=== PATIENT | male | born 1960 | race Caucasian/White ===

== ENCOUNTER 2019-11-13 18:44 | Emergency (ER) | payer OTHER ==
[~2019-11-13] VITALS: Ht 167.6 cm; Wt 77.1 kg
[2019-11-13 19:00] VITALS: BP 158/71
--- NOTE | 2019-11-13 19:03 | NUR ---
TO LOBBY A/W BED AMBULATORY
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
--- NOTE | 2019-11-13 19:39 | NUR ---
Pt ambulated to bed 5. Addendum: 11/13/19 at 1940 by [facility] Pt wheel chair assisted to bed 5.
[2019-11-13] MEDS ORDERED: LIDOCAINE MPF 1% 10 MG/ML VIAL INJ ONE ×2 (19:40→20:30)
[2019-11-13] MEDS ORDERED: cefTRIAXone 1,000 MG in LIDOCAINE MPF 1% 2.1 ML IM ONE (19:40)
[2019-11-13] MEDS ORDERED: cefTRIAXone 1,000 MG VIAL ONE (19:46)
[2019-11-13] MEDS ORDERED: LIDOCAINE MPF 1% 5 ML ONE (19:47)
--- NOTE | 2019-11-13 20:19 | NUR ---
PA AT BEDSIDE.
--- NOTE | 2019-11-13 20:20 | NUR ---
PULLED LIDOCAINE 1% FOR BEDSIDE I & D PROCEDURE. PA AT FOR BEDSIDE.
[2019-11-13 20:47] VITALS: BP 131/69
--- NOTE | 2019-11-13 20:47 | NUR ---
Patient discharged with v/s stable. Written and verbal after care instructions given and explained. Patient alert, oriented and verbalized understanding of instructions. Ambulatory with steady gait. All questions addressed prior to discharge. ID band removed. Patient advised to follow up with PMD. Rx of KEFLEX; IBUPROFEN given. Patient educated on indication of medication including possible reaction and side effects. Opportunity to ask questions provided and answered.
== END 2019-11-13 20:47 | disposition home or self-care (01) ==
LOC: MED 18:44
DX: L02.611 Cutaneous abscess of right foot (principal)
CPT/HCPCS: 10060; 96372; 99283; J0696; J2001

== ENCOUNTER 2019-11-16 07:32 | Emergency (ER) | payer OTHER ==
[~2019-11-16] VITALS: Ht 167.6 cm; Wt 74.8 kg
[2019-11-16 07:38] VITALS: BP 138/90
--- NOTE | 2019-11-16 07:38 | NUR ---
PT AMBULATED TO BED 06.
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
--- NOTE | 2019-11-16 08:13 | NUR ---
DR DIAZ AT BEDSIDE
--- NOTE | 2019-11-16 08:20 | NUR ---
PER SIVA CRAFT TO GIVE PT POST OP SHOE
[2019-11-16 08:22] VITALS: BP 138/90
--- NOTE | 2019-11-16 08:23 | NUR ---
Patient discharged with v/s stable. Written and verbal after care instructions given and explained. Patient alert, oriented and verbalized understanding of instructions. Ambulatory with steady gait. All questions addressed prior to discharge. ID band removed. Patient advised to follow up with PMD. Rx of BACTRIM given.PT WAS GIVEN AN ORTHO SHOE TO AVOID RUBBING ON WOUND SITE. Patient educated on indication of medication including possible reaction and side effects. Opportunity to ask questions provided and answered.
== END 2019-11-16 08:23 | disposition home or self-care (01) ==
LOC: MED 07:32
DX: L03.115 Cellulitis of right lower limb (principal); R03.0 Elevated blood-pressure reading, without diagnosis of hypertension
CPT/HCPCS: 99283

== ENCOUNTER 2021-07-09 12:19 | Emergency (ER) | payer OTHER ==
[~2021-07-09] VITALS: Ht 167.6 cm; Wt 72.6 kg
[2021-07-09 13:24] VITALS: BP 127/73
--- NOTE | 2021-07-09 13:27 | NUR ---
PT TO WAIT IN LOBBY
--- NOTE | 2021-07-09 14:30 | NUR ---
NO NURSING INTERVENTIONS DONE, NO COMPLETE ASSESSMENT NEEDED.
[2021-07-09 14:59] VITALS: BP 132/77
--- NOTE | 2021-07-09 14:59 | NUR ---
Patient discharged with v/s stable. Written and verbal after care instructions given and explained. Patient verbalized understanding. Ambulatory with steady gait. All questions addressed prior to discharge. Advised to follow up with PMD.
== END 2021-07-09 14:59 | disposition home or self-care (01) ==
LOC: MED 12:19
DX: G89.29 Other chronic pain (principal); M79.671 Pain in right foot
CPT/HCPCS: 73630; 99283